=== PATIENT | male | born 1985 | race Caucasian/White ===

== ENCOUNTER 2016-06-24 06:08 | Day surgery (SDC) | payer OTHER ==
--- NOTE | ~2016-06-24 | EGD ---
EGD REPORT [facility] [address] [address] NAME: JUNE SNEED : [birth year] STATUS : REG [facility]#: [id number] AGE: 30 ADM/REG DATE : 06/24/16 MR#: [id number] REPORT SERV DATE: 06/24/16 DICTATED BY: DATE: REPORT STATUS : Draft TRANSCRIBED BY: [employer] DATE: 06/24/16 [facility] Patient Name: June Sneed Date of : 1985 Attending MD: KYLEE MONTANO, Procedure Date No Time: 06/24/2016 Procedure: Upper GI endoscopy Indications: Follow-up of polyps in the duodenum Referring MD: Luis Handy MD Medicines: Monitored Anesthesia Care Complications: No immediate complications. Estimated blood loss: None. Procedure: Pre-Anesthesia Assessment: - ASA Grade Assessment: III - A patient with severe systemic disease. After obtaining informed consent, the endoscope was passed under direct vision. Throughout the procedure, the patient's blood pressure, pulse, and oxygen saturations were monitored continuously. The GIF [id number] [id number] was introduced through the mouth, and advanced to the second part of duodenum. The Duodenoscope was introduced through the and advanced to the. The upper GI endoscopy was accomplished without difficulty. The patient tolerated the procedure well. Findings: The esophagus was normal. The stomach was normal. Localized mild mucosal abnormality characterized by granularity was found in the second part of the duodenum. The was at the lateral margin of the polypectomy. Biopsies were taken with a cold forceps for histology. Verification of patient identification for the specimen was done. Estimated blood loss was minimal. The exam of the duodenum was otherwise normal. The area of the papilla was normal. Impression: - Normal esophagus. - Normal stomach. - Mucosal abnormality in the duodenum. Biopsied. - Normal area of the papilla. Recommendation: - Return to previous diet. - Continue present medications. - Await pathology results. - Repeat the upper endoscopy for surveillance based on pathology results. Likey one year if biopsies negative. EGD REPORT [facility] [address] [place] [address] [place] [address] NAME: JUNE SNEED : [birth year] STATUS : REG [facility]#: [id number] AGE: 30 ADM/REG DATE : 06/24/16 MR#: [id number] REPORT SERV DATE: 06/24/16 DICTATED BY: DATE: REPORT STATUS : Draft TRANSCRIBED BY: [employer] SERVICES DATE: 06/24/16 Procedure Code(s): --- Professional --- 35684, Esophagogastroduodenoscopy, flexible, transoral; with biopsy, single or multiple Diagnosis Code(s): --- Professional --- K31.9, Disease of stomach and duodenum, unspecified K31.7, Polyp of stomach and duodenum CPT copyright 2013 [employer]. All rights reserved. The codes documented in this report are preliminary and upon hospital corpsman review may be revised to meet current compliance requirements. KYLEE CHARMAINE, 06/24/2016 8:02 AM Number of Addenda: 0 Note Initiated On: 06/24/2016 7:39 AM Scope Withdrawal Time 0 hours 0 minutes 0 seconds [address] [facility] [place] [address]
[~2016-06-24 06:08] MED LIST: ACET500CAP PO; ADVIL PO; AMB5 PO; ASA5GR PO; ATV.5 PO; ATV1 PO; BEN25 PO; BENADRYL 50 MG50 MG PO; BENCRM TOP; CHANTIX0.5 PO; CLEOCIN300 MG PO; CYANO1000T PO; CYMBALTA60 PO; DIOCTO50 MG/5 ML PO; DOLOPHINE10 MG PO; DOLOPHINE5 MG PO; DSS PO; EFFEX75 PO; EFFEXOR XR150 MG PO; EFFEXXR75 PO; ENDOCET1 TAB PO; GENPRIL200 MG PO; LEVAQUIN750 MG PO; LEVSINTAB SL; LOP25 PO; LOP50 PO; MAX25 PO; METHATAB10; METHATAB40 PO; MOVANTIK25 MG PO; MULTI-VIT HP OR; MULTIPLE VIT PO; MULTIVIT/MIN PO; NATURE'S OPH; NEUR600 PO; NEUR800 PO; NORCO1 TA1 PO; OCEAN NAS; OTC STOOL SOFTENER PO; PERCOCET1 TA2 PO; PERCOCET1 TA4 PO; PERCOCET1 TA5 PO; PERI-COLACE1 TAB PO; PR12.5 PO; PR25 PO; PROAIR HFA INH; PROTONIX PO; PROVHFA INH; PROZAC PO; PROZAC40 MG PO; REM15 PO; ROXICODONE15 MG PO; STOOL SOFTENER PO; T PO; TOPAMAX100 PO; TOPAMAX200 MG PO; TOPAMAX25 PO; TOPXL25 PO; V-R VIT B-6100 MG PO; VENTOLIN HFA INH; VIB100 PO; VITC500 PO; ZENPEP5000 UNIT; ZOFRAN PO; ZOFRAN4 PO; ZOFRAN8 PO; [UNRECOGNIZED DRUG - OTHER] PO; [UNRECOGNIZED DRUG - REMARK] PO
[2016-06-27] MEDS ORDERED: PROAIR HFA INH (00:18)
[2016-06-27] MEDS ORDERED: MULTIVIT/MIN PO (00:18)
[2016-06-27] MEDS ORDERED: ACET500CAP PO (00:18)
[2016-06-27] MEDS ORDERED: NEUR800 PO (00:19)
[2016-06-27] MEDS ORDERED: CYMBALTA30 PO (00:19)
[2016-06-27] MEDS ORDERED: ATV1 PO (00:20)
[2016-06-27] MEDS ORDERED: DOLOPHINE10 MG PO (00:20)
[2016-06-27] MEDS ORDERED: MOVANTIK25 MG PO (00:21)
[2016-06-27] MEDS ORDERED: ZOFRAN4 PO (00:21)
[2016-06-27] MEDS ORDERED: REM15 PO (00:21)
[2016-06-27] MEDS ORDERED: ROXICODONE15 MG PO (00:22)
[2016-06-27] MEDS ORDERED: PROTONIX PO (00:22)
[2016-06-27] MEDS ORDERED: TOPAMAX200 MG PO (00:23)
[2016-06-27] MEDS ORDERED: MAX25 PO (00:24)
[2016-07-19] MEDS ORDERED: CHANTIX1 PO (11:21)
[2016-11-29] MEDS ORDERED: MEDS (14:26)
== END 2016-06-24 23:59 | disposition home health service (06) ==
LOC: DMU 06:08
PROVIDERS: Internal Medicine Gastroenterology
PROC: 0DB98ZX Excision of Duodenum, Via Natural or Artificial Opening Endoscopic, Diagnostic (ICD-10-PCS; principal; 2016-06-24 07:30)
DX: D13.2 Benign neoplasm of duodenum (principal); R56.9 Unspecified convulsions; J45.909 Unspecified asthma, uncomplicated; E66.9 Obesity, unspecified; F17.200 Nicotine dependence, unspecified, uncomplicated; Z98.890 Other specified postprocedural states; I10 Essential (primary) hypertension; M19.90 Unspecified osteoarthritis, unspecified site; K21.9 Gastro-esophageal reflux disease without esophagitis; F41.9 Anxiety disorder, unspecified; F32.9 Major depressive disorder, single episode, unspecified; F43.10 Post-traumatic stress disorder, unspecified
CPT/HCPCS: 88305; J1170

== ENCOUNTER 2016-08-12 08:49 | Day surgery (SDC) | payer OTHER ==
--- NOTE | ~2016-08-12 | EGD ---
EGD REPORT [facility] 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 Estimated blood loss: None. Procedure: Pre-Anesthesia Assessment: - ASA Grade Assessment: III - A patient with severe systemic disease. After obtaining informed consent, the endoscope was passed under direct vision. Throughout the procedure, the patient's blood pressure, pulse, and oxygen saturations were monitored continuously. The TJF [id number] was introduced through the mouth, and advanced to the second part of duodenum. The upper GI endoscopy was accomplished without difficulty. The patient tolerated the procedure well. Findings: The esophagus was normal. The stomach was normal. The examined duodenum was normal. A single 10 mm sessile polyp with no bleeding was found in the area of the papilla. The polyp was removed with a hot snare. Resection and retrieval were complete. Coagulation for tissue destruction using argon plasma at 0.9 liters/minute and 25 mcclure was successful. The exam of the duodenum was otherwise normal. Impression: - Normal esophagus. - Normal stomach. - Normal examined duodenum. - A single duodenal polyp. Resected and retrieved. Treated with thermal therapy. Recommendation: - Patient has a contact number available for emergencies. The signs and symptoms of potential delayed complications were discussed with the patient. Return to normal activities tomorrow. Written discharge instructions were provided to the patient. - Return to previous diet. EGD REPORT [facility] [address] [place]. [address] NAME: JUNE SNEED : [birth year] STATUS : REG [facility]#: [id number] AGE: 30 ADM/REG DATE : 08/12/16 MR#: [id number] REPORT SERV DATE: 08/12/16 DICTATED BY: DATE: REPORT STATUS : Draft TRANSCRIBED BY: [employer] DATE: 08/12/16 - Continue present medications. - Await pathology results. - Repeat the upper endoscopy in 6 months for surveillance. 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 All rights reserved. The codes documented in this report are preliminary and upon certified procedural coder review may be revised to meet current compliance requirements. KYLEE CHARMAINE, 08/12/2016 10:38 AM Number of Addenda: 0 Note Initiated On: 08/12/2016 10:00 AM Scope Withdrawal Time 0 hours 0 minutes 0 seconds [address] [place] [address]
[~2016-08-12 08:49] MED LIST changes: +CHANTIX1 PO; +CYMBALTA30 PO
[2016-11-29] MEDS ORDERED: MEDS (14:26)
== END 2016-08-12 23:59 | disposition home or self-care (01) ==
LOC: DMU 08:49
PROVIDERS: Internal Medicine Gastroenterology
PROC: 0DB98ZZ Excision of Duodenum, Via Natural or Artificial Opening Endoscopic (ICD-10-PCS; principal; 2016-08-12 11:30)
PROC: 0D598ZZ Destruction of Duodenum, Via Natural or Artificial Opening Endoscopic (ICD-10-PCS; 2016-08-12 11:30)
DX: D13.2 Benign neoplasm of duodenum (principal); K86.3 Pseudocyst of pancreas; K21.9 Gastro-esophageal reflux disease without esophagitis; K85.90 Acute pancreatitis without necrosis or infection, unspecified; I10 Essential (primary) hypertension; J45.909 Unspecified asthma, uncomplicated; M19.90 Unspecified osteoarthritis, unspecified site; F41.9 Anxiety disorder, unspecified; F32.9 Major depressive disorder, single episode, unspecified; F41.0 Panic disorder [episodic paroxysmal anxiety]; F43.10 Post-traumatic stress disorder, unspecified; G40.909 Epilepsy, unspecified, not intractable, without status epilepticus; F17.290 Nicotine dependence, other tobacco product, uncomplicated; Z79.899 Other long term (current) drug therapy; Z98.890 Other specified postprocedural states
CPT/HCPCS: 88305; J2405

== ENCOUNTER 2016-09-04 22:24 | Emergency (ER) | payer OTHER ==
[2016-09-04 19:59] LABS: BASOPHILS 0.2 %; BASOPHILS ABSOLUTE 0.02 10/3/uL (0.0-0.16); EOSINOPHILS 1.4 %; EOSINOPHILS ABSOLUTE 0.13 10/3/uL (0.0-0.53); HEMATOCRIT 45.6 % (40.0-51.0); HEMOGLOBIN 15.8 g/dL (13.6-17.8); IMMATURE GRANULOCYTES 0.2 %; IMMATURE GRANULOCYTES ABSOLUTE 0.02 10/3/uL (0.0-0.11); LYMPHOCYTES 32.6 %; LYMPHOCYTES ABSOLUTE 2.96 10/3/uL (0.67-4.30); MEAN CORPUS HGB CONC 34.6 g/dL (32.0-36.0); MEAN CORPUSCULAR HEMOGLOB 31.4 pg (26.0-34.0); MEAN CORPUSCULAR VOLUME 90.7 fL (80-100); MEAN PLATELET VOLUME 9.5 fL (9.2-13.0); MONOCYTES ABSOLUTE 0.45 10/3/uL (0.21-1.20); NEUTROPHILS 60.6 %; NEUTROPHILS ABSOLUTE 5.49 10/3/uL (2.02-8.40); PLATELET COUNT 173 10/3/uL (150-400); RBC DISTRIBUTION WIDTH 13.6 % (12.0-16.0); RED CELL COUNT 5.03 10/6/uL (4.7-6.1); WHITE BLOOD CELLS 9.1 10/3/uL (4.5-10.5)
[2016-09-04 20:01] LABS: MANUAL DIFF NO %
[2016-09-04 20:05] LABS: ASCORBIC ACID (UR NOT ORDER) 40 (NEG); BILIRUBIN, URINE NEGATIVE (NEG); ER URINALYSIS TAT 0 Hrs 09 Mins; KETONE, URINE NEGATIVE (NEG); LEUKOCYTE ESTERASE(NOT OR NEG (NEG); NITRITE (URINE) NEG (NEG); WBC (NOT ORDERED) (RFLEX) < 1 (0-5)
[2016-09-04 20:15] LABS: A/G RATIO 1.3 (0.7-1.9); ALKALINE PHOSPHATASE 97 U/L (45-117); CALCIUM, SERUM 8.6 MG/DL (8.5-10.4); CHLORIDE, SERUM 112 MMOL/L (96-112); CO2 (CARBON DIOXIDE) 22 MMOL/L (24-34); CREATININE 0.62 MG/DL (0.70-1.30); GFR AFRICAN AMERICAN 152 ML/MIN (>=60); GFR NON AFRICAN AMERICAN 131 ML/MIN (>=60); GLOBULIN 3.1 G/DL (2.5-4.1); POTASSIUM, SERUM 4.1 MMOL/L (3.5-5.3); SGOT(AST) 12 U/L (5-40); SGPT(ALT) 21 U/L (5-65); SODIUM, SERUM 143 MMOL/L (135-148); TOTAL BILIRUBIN 0.8 MG/DL (0-1.2); TOTAL PROTEIN 7.1 G/DL (6.0-8.5)
[2016-09-04 20:16] LABS: BUN (BLOOD UREA NITROGEN) 13 MG/DL (6-23); GLUCOSE, SERUM 115 MG/DL (60-99)
[2016-09-05 00:07] LABS: TROPONIN I <0.02 NG/ML (<0.05)
[2016-11-29] MEDS ORDERED: MEDS (14:26)
== END 2016-09-05 01:36 | disposition home or self-care (01) ==
LOC: ER 22:24
PROVIDERS: Hospitalist
DX: R10.10 Upper abdominal pain, unspecified (principal); J45.909 Unspecified asthma, uncomplicated; I10 Essential (primary) hypertension; K21.9 Gastro-esophageal reflux disease without esophagitis; F32.9 Major depressive disorder, single episode, unspecified; F41.9 Anxiety disorder, unspecified; G62.9 Polyneuropathy, unspecified; K85.90 Acute pancreatitis without necrosis or infection, unspecified; Z79.899 Other long term (current) drug therapy
CPT/HCPCS: 80053; 81001; 83690; 84484; 85025; 93005; 96374; 96375; 96376; 99284; J1170; J2405